=== PATIENT | male | born 1955 | race Caucasian/White ===

== ENCOUNTER 2018-02-04 06:55 | Day surgery (SDC) | payer OTHER ==
[2018-02-04] MEDS ORDERED: LIDOCAINE HCL 1% MPF SOL ONE (08:11)
[2018-02-04] MEDS ORDERED: PROPOFOL 500 MG/50 ML EMU IV ONE (08:11)
[2018-02-04 09:07] VITALS: BP 131/87; PULSE 69; RESP 18; TEMP 97.4; O2SAT 99
== END 2018-02-04 09:25 | disposition home or self-care (01) | DRG 951 ==
LOC: SURG 06:55
PROVIDERS: ATTEND Surgery
DX: Z12.11 Encounter for screening for malignant neoplasm of colon (principal)
CPT/HCPCS: J2001; J2704